=== PATIENT | male | born 1955 | race Caucasian/White ===

== ENCOUNTER 2016-09-04 19:04 | Emergency (ER) | payer MEDICARE, OTHER ==
[2016-09-04 19:04] VITALS: BMI 21.5
[2016-09-04 19:11] VITALS: BP 148/71; PULSE 65; RESP 20; TEMP 97.8; O2SAT 97
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
== END 2016-09-04 21:40 | disposition left against medical advice (07) ==
LOC: H.ER 19:04
DX: S59.912A Unspecified injury of left forearm, initial encounter (principal); W19.XXXA Unspecified fall, initial encounter; Y92.89 Other specified places as the place of occurrence of the external cause; M54.9 Dorsalgia, unspecified

== ENCOUNTER 2017-08-07 10:51 | Emergency (ER) | payer MEDICARE, OTHER ==
[2017-08-07 10:57] VITALS: TEMP 97.8; BMI 27.1
[2017-08-07] MEDS ORDERED: Alum-Mag Hydrox-Simethicone Susp (30 mL) PO ONE (12:23)
[2017-08-07] MEDS ORDERED: Iohexol 240 (50 ml) PO ONE (12:24)
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
[2017-08-07] MEDS ORDERED: Alum-Mag Hydrox-Simethicone Susp (30 mL) ONE (13:08)
[2017-08-07] MEDS ORDERED: Iohexol 240 (50 ml) ONE (13:08)
[2017-08-07 13:25] LABS: BASO % 0.6 % (0.0-2.0); EOS % 0.5 % (0.0-4.0); HEMOGLOBIN 13.2 g/dL (12.0-18.0); LYMPH # 2.1 K/uL (1.0-4.3); LYMPH % 25.3 % (20.0-40.0); MEAN CELL VOLUME 96.2 fl (80.0-94.0); MEAN CORPUSCULAR HEMOGLOBIN 31.4 pg (27.0-31.0); MEAN CORPUSCULAR HGB CONC 32.6 g/dL (33.0-37.0); MEAN PLATELET VOLUME 8.2 fl (7.2-11.7); MONO # 0.7 K/uL (0.0-0.8); MONO % 8.9 % (0.0-10.0); NEUT # 5.2 K/uL (1.8-7.0); NEUT % 64.7 % (50.0-75.0); NRBC % 0.1 % (0.0-0.0); RBC 4.2 Mil/uL (4.40-5.90); WHITE BLOOD COUNT 8.1 K/uL (4.8-10.8)
--- NOTE | 2017-08-07 14:29 | RAD ---
HISTORY: epigastric abdominal pain COMPARISON: 10/04/2015 FINDINGS: LUNGS: No active pulmonary disease. PLEURA: No significant pleural effusion identified, no pneumothorax apparent. CARDIOVASCULAR: No radiographic findings to suggest acute or significant cardiovascular disease. OSSEOUS STRUCTURES: No significant abnormalities. VISUALIZED UPPER ABDOMEN: Normal. OTHER FINDINGS: None. IMPRESSION: No active disease. No significant interval change compared to the prior examination(s).
[2017-08-07 14:40] LABS: ALB/GLOB RATIO 1.2 (1.0-2.1)
[2017-08-07 14:41] LABS: URINE BILIRUBIN NEGATIVE (NEGATIVE); URINE CLARITY Clear (Clear); URINE COLOR STRAW (YELLOW); URINE GLUCOSE (UA) NEGATIVE (Normal)
[2017-08-07 14:42] LABS: SQUAMOUS EPITHIAL 1 /hpf (0-5); URINE BACTERIA FEW (<OCC); URINE BLOOD TRACE (NEGATIVE); URINE LEUKOCYTE ESTERASE NEGATIVE Leu/uL (Negative); URINE PROTEIN 30 mg/dL (NEGATIVE); URINE UROBILINOGEN 1.01 mg/dL (0.2-1.0)
[2017-08-07 14:53] LABS: ALBUMIN 3.9 g/dL (3.5-5.0); ALT/SGPT 52 U/L (21-72); AST/SGOT 35 U/L (17-59); BLOOD UREA NITROGEN 16 mg/dl (9-20); CALCIUM 9.8 mg/dL (8.4-10.2); GFR AFRICAN-AMERICAN > 60; GFR NON-AFRICAN AMERICAN > 60; LIPASE 34 U/L (23-300)
--- NOTE | 2017-08-07 15:07 | CARD ---
APPROVED REPORT EKG Measurement Heart [id number] OR 128P72 [id number] <Conclusion> Normal sinus rhythm Possible Left atrial enlargement Borderline ECG
[2017-08-07] MEDS ORDERED: Sodium Chloride 0.9% 100 ML ONE (16:19)
[2017-08-07] MEDS ORDERED: Iohexol 300 100 ML IJ ONE (16:19)
[2017-08-07] MEDS ORDERED: Sodium Chloride 0.9% 1,000 ML IV STA (16:45)
--- NOTE | 2017-08-07 17:29 | CT ---
PROCEDURE: CT Abdomen and Pelvis with contrast HISTORY: epigastric pain with diffuse tenderness COMPARISON: None. TECHNIQUE: Contrast dose: 95 cc Omnipaque 300 Radiation dose: Total exam DLP = 322.17 mGy-cm. This CT exam was performed using one or more of the following dose reduction techniques: Automated exposure control, adjustment of the mA and/or kV according to patient size, and/or use of iterative reconstruction technique. FINDINGS: LOWER THORAX: Unremarkable. LIVER: Hepatic steatosis. No focal masses. No intrahepatic bile duct dilatation or perihepatic ascites. GALLBLADDER AND BILE DUCTS: Unremarkable. PANCREAS: Unremarkable. No gross lesion or ductal dilatation. SPLEEN: Unremarkable. ADRENALS: Mildly enlarged adrenal glands bilaterally with nodular contours likely benign etiology, incidental. KIDNEYS AND URETERS: Unremarkable. No hydronephrosis. No solid mass. VASCULATURE: Unremarkable. No aortic aneurysm. BOWEL: Constipation without fecal impaction or obstruction. APPENDIX: Normal appendix. PERITONEUM: Unremarkable. No free fluid. No free air. LYMPH NODES: Unremarkable. No enlarged lymph nodes. BLADDER: Unremarkable. REPRODUCTIVE: Unremarkable. BONES: No acute fracture. Degenerative disc disease at multiple levels. Disc space narrowing, vacuum disc phenomenon and annular bulges identified L4-5. OTHER FINDINGS: None. IMPRESSION: No acute findings related to/accounting for the clinical presentation. Additional benign and/or incidental findings described above.
[2017-08-07 18:05] VITALS: BP 110/62; RESP 18
[2017-08-07 20:03] VITALS: O2SAT 100
[2017-08-07 20:06] VITALS: PULSE 60
== END 2017-08-07 18:05 | disposition home or self-care (01) ==
LOC: SUPCPDRO 10:51 → H.ER 10:51
DX: K29.70 Gastritis, unspecified, without bleeding (principal); E78.00 Pure hypercholesterolemia, unspecified; G89.29 Other chronic pain; I10 Essential (primary) hypertension
CPT/HCPCS: 71045; 74177; 80053; 81003; 83690; 84484; 85025; 93005; 96361; 96374; 99283; G0480; J7040; Q9966; Q9967

== ENCOUNTER 2017-10-13 16:24 | Emergency (ER) | payer MEDICARE, OTHER ==
[2017-10-13 16:24] VITALS: BMI 27.1
[2017-10-13] MEDS ORDERED: Naloxone 0.4 mg/ml Inj (Adult) IVP STA (16:44)
[2017-10-13] MEDS ORDERED: Sodium Chloride 0.9% 1,000 ML IV STA ×3 (16:44→22:35)
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
[2017-10-13] MEDS ORDERED: Naloxone 0.4 mg/ml Inj (Adult) ONE (17:09)
[2017-10-13 17:23] LABS: BASO # 0.1 K/uL (0.0-0.2); EOS # 0.2 K/uL (0.0-0.7); EOS % 2.2 % (0.0-4.0); HEMOGLOBIN 10.9 g/dL (12.0-18.0); LYMPH % 38.2 % (20.0-40.0); MEAN CELL VOLUME 93.2 fl (80.0-94.0); MEAN CORPUSCULAR HEMOGLOBIN 30.4 pg (27.0-31.0); MEAN CORPUSCULAR HGB CONC 32.6 g/dL (33.0-37.0); MEAN PLATELET VOLUME 8.9 fl (7.2-11.7); MONO % 12.2 % (0.0-10.0); NEUT # 3.7 K/uL (1.8-7.0); NEUT % 46.4 % (50.0-75.0); RBC 3.58 Mil/uL (4.40-5.90); RED CELL DISTRIBUTION WIDTH 14.7 % (11.5-14.5); WHITE BLOOD COUNT 7.9 K/uL (4.8-10.8)
--- NOTE | 2017-10-13 17:28 | RAD ---
HISTORY: clearance COMPARISON: 08/07/2017 FINDINGS: LUNGS: No active pulmonary disease. PLEURA: No significant pleural effusion identified, no pneumothorax apparent. CARDIOVASCULAR: No radiographic findings to suggest acute or significant cardiovascular disease. OSSEOUS STRUCTURES: No significant abnormalities. VISUALIZED UPPER ABDOMEN: Normal. OTHER FINDINGS: None. IMPRESSION: No active disease. No significant interval change compared to the prior examination(s).
[2017-10-13 17:30] LABS: ALB/GLOB RATIO 1.2 (1.0-2.1); ALT/SGPT 30 U/L (21-72); AST/SGOT 33 U/L (17-59); BLOOD UREA NITROGEN 21 mg/dl (9-20); CALCIUM 8.6 mg/dL (8.4-10.2); GFR AFRICAN-AMERICAN 41; GFR NON-AFRICAN AMERICAN 34
[2017-10-13 19:29] VITALS: O2SAT 96
--- NOTE | 2017-10-13 23:15 | ED PDOC ---
- Laboratory Results Result Diagrams: 10/13/17 17:17 10/13/17 17:17 - ECG O2 Sat by Pulse Oximetry: 96 - Progress ED Course And Treament: Case endorsed to continuity writer from Carmella MIRANDA pending re-eval 21:30 Patient sleeping; arousable to verbal stimuli 23:45 Patient awake, alert, oriented x3. Ambulating steady gait. VSS Stable for discharge Patient educated on lab findings, advised follow up PMD 2-3 days. Disposition - Clinical Impression Clinical Impression: Substance abuse, Elevated serum creatinine - POA Present On Arrival: None - Disposition Disposition: Routine/Home Disposition Time: 23:54 Condition: IMPROVED Instructions: Drug Abuse and Drug Addiction (DC), Creatinine Level Test Forms: [employer] (Bengali)
[2017-10-13 23:58] VITALS: BP 106/59; PULSE 58; RESP 15; TEMP 98.2
--- NOTE | 2017-10-14 08:45 | CARD ---
APPROVED REPORT EKG Measurement Heart [id number] [id number] <Conclusion> Sinus bradycardia with premature atrial complexes Otherwise normal ECG
== END 2017-10-14 00:07 | disposition home or self-care (01) ==
LOC: H.ER 16:24
DX: F12.90 Cannabis use, unspecified, uncomplicated (principal); R79.89 Other specified abnormal findings of blood chemistry; E78.00 Pure hypercholesterolemia, unspecified; F17.210 Nicotine dependence, cigarettes, uncomplicated; G89.29 Other chronic pain; I10 Essential (primary) hypertension
CPT/HCPCS: 71045; 80053; 82948; 84484; 85025; 93005; 96374; 99285; G0480; J2310; J7030

== ENCOUNTER 2017-12-03 17:35 | Emergency (ER) | payer MEDICARE, OTHER ==
[2017-12-03 17:35] VITALS: BMI 27.1
[2017-12-03 17:59] VITALS: BP 156/93; PULSE 77; RESP 18; TEMP 98.7; O2SAT 99
[2017-12-03] MEDS ORDERED: Sodium Chloride 0.9% 1,000 ML IV STA (18:57)
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
[2017-12-03 20:12] LABS: BASO # 0.1 K/uL (0.0-0.2); EOS # 0.1 K/uL (0.0-0.7); EOS % 0.9 % (0.0-4.0); HEMOGLOBIN 12.6 g/dL (12.0-18.0); LYMPH # 2.7 K/uL (1.0-4.3); LYMPH % 31.8 % (20.0-40.0); MEAN CELL VOLUME 89.2 fl (80.0-94.0); MEAN CORPUSCULAR HGB CONC 33.6 g/dL (33.0-37.0); MEAN PLATELET VOLUME 7.7 fl (7.2-11.7); MONO # 0.8 K/uL (0.0-0.8); MONO % 9.5 % (0.0-10.0); NEUT # 4.8 K/uL (1.8-7.0); NEUT % 56.8 % (50.0-75.0); RBC 4.19 Mil/uL (4.40-5.90); WHITE BLOOD COUNT 8.5 K/uL (4.8-10.8)
[2017-12-03] MEDS ORDERED: Iohexol 300 100 ML IJ ONE (20:28)
[2017-12-03] MEDS ORDERED: Sodium Chloride 0.9% 0 ML IV ONE (20:28)
[2017-12-03 20:44] LABS: ALBUMIN 4.4 g/dL (3.5-5.0); ALT/SGPT 87 U/L (21-72); AST/SGOT 60 U/L (17-59); BLOOD UREA NITROGEN 12 mg/dl (9-20); CALCIUM 9.6 mg/dL (8.4-10.2); GFR AFRICAN-AMERICAN > 60; GFR NON-AFRICAN AMERICAN > 60; LIPASE 75 U/L (23-300)
[2017-12-03 20:45] LABS: ALB/GLOB RATIO 1.3 (1.0-2.1)
[2017-12-03 20:48] LABS: INR 1.1; PARTIAL THROMBOPLASTIN TIME 35.4 Seconds (25.6-37.1); PROTHROMBIN TIME 11.9 Seconds (9.8-13.1)
[2017-12-03 20:56] LABS: SQUAMOUS EPITHIAL < 1 /hpf (0-5); URINE BACTERIA OCC (<OCC); URINE BILIRUBIN NEGATIVE (NEGATIVE); URINE BLOOD SMALL (NEGATIVE); URINE CLARITY CLOUDY (Clear); URINE COLOR YELLOW (YELLOW); URINE GLUCOSE (UA) NEG (Normal); URINE LEUKOCYTE ESTERASE NEG Leu/uL (Negative); URINE PROTEIN NEGATIVE (NEGATIVE)
--- NOTE | 2017-12-04 07:38 | CARD ---
APPROVED REPORT Date of service: 12/03/2017 <Conclusion> Normal sinus rhythm Possible Left atrial enlargement Left axis deviation Abnormal ECG
--- NOTE | 2017-12-04 10:53 | CT ---
Date of service: 12/03/2017 PROCEDURE: CT Abdomen and Pelvis without intravenous contrast HISTORY: Generalized abdominal pain and vomiting. COMPARISON: 08/07/2017. TECHNIQUE: Unenhanced study. Neither oral nor intravenous contrast administered. Sensitivity and specificity for acute inflammatory processes limited by the absence of oral and intravenous contrast. Radiation dose: Total exam DLP = 336.14 mGy-cm. This CT exam was performed using one or more of the following dose reduction techniques: Automated exposure control, adjustment of the mA and/or kV according to patient size, and/or use of iterative reconstruction technique. FINDINGS: LOWER THORAX: Unremarkable. LIVER: Unremarkable. No gross lesion or ductal dilatation. GALLBLADDER AND BILE DUCTS: Unremarkable. PANCREAS: Unremarkable. No gross lesion or ductal dilatation. SPLEEN: Unremarkable. ADRENALS: Mildly enlarged adrenal glands bilaterally consistent with adrenal adenomas. These are unchanged. KIDNEYS AND URETERS: Unremarkable. No hydronephrosis. No solid mass. VASCULATURE: Unremarkable. No aortic aneurysm. BOWEL: Dilated proximal small bowel and jejunum. Early/incomplete small bowel obstruction should be considered. Proximal small bowel is of normal luminal caliber on the prior study. APPENDIX: Unremarkable. Normal appendix. PERITONEUM: Unremarkable. No free fluid. No free air. LYMPH NODES: Unremarkable. No enlarged lymph nodes. BLADDER: Unremarkable. REPRODUCTIVE: Unremarkable. BONES: No acute fracture. OTHER FINDINGS: None. IMPRESSION: Dilated proximal small bowel and jejunum a new finding compared to the prior study. Early/incomplete small bowel obstruction should be considered. Additional benign and/or incidental findings described above. Concordant results (preliminary interpretation) provided by [employer]. Procedure Completed: 21:29. Preliminary ([facility]) Report: Dictated and Authenticated: 21:54. Final Interpretation: 10:52. December 04, 2017.
== END 2017-12-03 22:25 | disposition left against medical advice (07) ==
LOC: H.ER 17:35
DX: R10.9 Unspecified abdominal pain (principal); I10 Essential (primary) hypertension; E78.00 Pure hypercholesterolemia, unspecified; G89.29 Other chronic pain; Z91.19 Patient's noncompliance with other medical treatment and regimen; F17.210 Nicotine dependence, cigarettes, uncomplicated
CPT/HCPCS: 74176; 80053; 81003; 83690; 85025; 85610; 85730; 93005; 96374; 99283; J2405; J7030

== ENCOUNTER 2018-03-30 09:19 | Emergency (ER) | payer MEDICARE, OTHER ==
[2018-03-30 09:19] VITALS: BMI 27.1
[2018-03-30 10:59] LABS: BASO # 0.1 K/uL (0.0-0.2); BASO % 0.8 % (0.0-2.0); EOS # 0.1 K/uL (0.0-0.7); EOS % 1.1 % (0.0-4.0); HEMOGLOBIN 11.6 g/dL (12.0-18.0); LYMPH # 2.9 K/uL (1.0-4.3); LYMPH % 29.7 % (20.0-40.0); MEAN CELL VOLUME 91.4 fl (80.0-94.0); MEAN CORPUSCULAR HEMOGLOBIN 29.8 pg (27.0-31.0); MEAN CORPUSCULAR HGB CONC 32.6 g/dL (33.0-37.0); MEAN PLATELET VOLUME 8.5 fl (7.2-11.7); MONO # 0.9 K/uL (0.0-0.8); MONO % 9.9 % (0.0-10.0); NEUT # 5.6 K/uL (1.8-7.0); NEUT % 58.5 % (50.0-75.0); RBC 3.89 Mil/uL (4.40-5.90); RED CELL DISTRIBUTION WIDTH 14.7 % (11.5-14.5); WHITE BLOOD COUNT 9.6 K/uL (4.8-10.8)
[2018-03-30 11:10] LABS: ACETAMINOPHEN < 10.0 ug/ml (10.0-30.0); ALB/GLOB RATIO 1.2 (1.0-2.1); ALBUMIN 4.1 g/dL (3.5-5.0); ALT/SGPT 22 U/L (21-72); AST/SGOT 40 U/L (17-59); BLOOD UREA NITROGEN 19 mg/dl (9-20); CALCIUM 9.5 mg/dL (8.4-10.2); GFR NON-AFRICAN AMERICAN > 60; SALICYLATE < 1.0 mg/dl
--- NOTE | 2018-03-30 12:12 | CT ---
Date of service: 03/30/2018 PROCEDURE: CT HEAD WITHOUT CONTRAST. HISTORY: ams COMPARISON: None available TECHNIQUE: Axial computed tomography images were obtained through the head/brain without intravenous contrast. Radiation dose: Total exam DLP = 1381.25 mGy-cm. This CT exam was performed using one or more of the following dose reduction techniques: Automated exposure control, adjustment of the mA and/or kV according to patient size, and/or use of iterative reconstruction technique. FINDINGS: HEMORRHAGE: No intracranial hemorrhage. BRAIN: No mass effect or edema. Moderate to severe patchy and confluent white matter lucency in the periventricular deep and subcortical white matter consistent with microvascular white matter ischemic change. This is slightly greater than expected for patient age. Please correlate clinically and rule out demyelinating disorder. VENTRICLES: Unremarkable. No hydrocephalus. CALVARIUM: Unremarkable. PARANASAL SINUSES: Unremarkable as visualized. No significant inflammatory changes. MASTOID AIR CELLS: Unremarkable as visualized. No inflammatory changes. OTHER FINDINGS: None. IMPRESSION: Moderate to severe chronic white matter ischemic change. Rule out demyelinating disorder. No other significant abnormality.
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
[2018-03-30 12:49] LABS: BARBITURATES, UR NEGATIVE (NEGATIVE); BENZODIAZEPINES, UR NEGATIVE (NEGATIVE); OPIATES, UR POSITIVE (NEGATIVE); PHENCYCLIDINE, UR NEGATIVE (NEGATIVE)
--- NOTE | 2018-03-30 14:26 | RAD ---
Date of service: 03/30/2018 PROCEDURE: Right Knee Radiographs. HISTORY: knee pain COMPARISON: None. FINDINGS: BONES: Normal. No fracture. JOINTS: Severe degenerative changes are seen in the medial compartment with joint space narrowing and bony sclerosis. Mild degenerative changes are seen in the patellofemoral joint JOINT EFFUSION: None. OTHER FINDINGS: None. IMPRESSION: No acute findings
[2018-03-30 17:43] VITALS: BP 139/73; PULSE 82; RESP 20; TEMP 97.6
[2018-04-02 10:22] VITALS: O2SAT 100
== END 2018-03-30 18:15 | disposition home or self-care (01) ==
LOC: H.ER 09:19 → SUPCPDRO 09:19 → H.ER 18:15
DX: F11.10 Opioid abuse, uncomplicated (principal)
CPT/HCPCS: 70450; 73562; 80053; 82948; 85025; 99285; G0480

== ENCOUNTER 2018-04-11 21:16 | Emergency (ER) | payer MEDICARE, OTHER ==
[2018-04-11 21:16] VITALS: BMI 27.1
[2018-04-11 21:35] VITALS: BP 141/80; PULSE 87; RESP 16; TEMP 98.1; O2SAT 97
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
--- NOTE | 2018-04-12 09:46 | RAD ---
Date of service: 04/11/2018 PROCEDURE: Radiographs of the Right Shoulder HISTORY: s/p fall, joint pain COMPARISON: No prior. FINDINGS: BONES: No acute fracture or destructive bony lesion identified. Fibrocystic changes seen at the right humeral head. JOINTS: Degenerative glenohumeral and acromioclavicular joint changes are identified manifest by cortical sclerosis and osteophyte development. SOFT TISSUES: Normal. OTHER FINDINGS: None. IMPRESSION: Degenerative joint changes are [id number] severity. No acute fracture, subluxation or dislocation.
--- NOTE | 2018-04-12 09:48 | RAD ---
Date of service: 04/11/2018 PROCEDURE: Right Knee Radiographs. HISTORY: s/p fall, joint pain COMPARISON: None. FINDINGS: BONES: No acute fracture or destructive bony lesion identified. JOINTS: Gross joint space narrowing, cortical sclerosis and osteophyte development are identified at the patellofemoral and medial femorotibial compartments with similar but lesser degenerative changes present at the lateral femorotibial compartment. JOINT EFFUSION: None. OTHER FINDINGS: None. IMPRESSION: Late stage osteoarthritis. No acute fracture, subluxation or dislocation identified.
== END 2018-04-11 23:14 | disposition home or self-care (01) ==
LOC: H.ER 21:16
DX: M25.511 Pain in right shoulder (principal); M25.561 Pain in right knee; M17.10 Unilateral primary osteoarthritis, unspecified knee; T14.8XXA Other injury of unspecified body region, initial encounter; W18.2XXA Fall in (into) shower or empty bathtub, initial encounter; F17.200 Nicotine dependence, unspecified, uncomplicated; G89.29 Other chronic pain; I10 Essential (primary) hypertension
CPT/HCPCS: 73030; 73562; 96372; 99284; J1885

== ENCOUNTER 2018-04-12 05:01 | Emergency (ER) | payer MEDICARE, OTHER ==
[2018-04-12 06:00] VITALS: BMI 25.8
[2018-04-12 06:03] VITALS: PULSE 68; TEMP 98.2
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
[2018-04-12 07:03] VITALS: RESP 24; O2SAT 96
[2018-04-12 07:06] VITALS: BP 162/89
== END 2018-04-12 07:03 | disposition home or self-care (01) ==
LOC: H.ER 05:01
DX: Z00.00 Encounter for general adult medical examination without abnormal findings (principal)

== ENCOUNTER 2018-04-26 12:34 | Emergency (ER) | payer MEDICARE, OTHER ==
[2018-04-26 12:34] VITALS: BMI 25.8
[2018-04-26 12:47] VITALS: BP 153/79; PULSE 74; RESP 18; TEMP 97; O2SAT 99
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
== END 2018-04-26 13:55 | disposition home or self-care (01) ==
LOC: H.ER 12:34
DX: M17.11 Unilateral primary osteoarthritis, right knee (principal); E78.00 Pure hypercholesterolemia, unspecified; I10 Essential (primary) hypertension
CPT/HCPCS: 96372; 99283; J1885

== ENCOUNTER 2018-05-02 13:53 | Emergency (ER) | payer MEDICARE, OTHER ==
[2018-05-02 13:54] VITALS: BMI 25.8
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
[2018-05-02 15:23] VITALS: BP 120/70; PULSE 78; RESP 20; TEMP 98.3
[2018-05-02 18:41] VITALS: O2SAT 99
== END 2018-05-02 15:20 | disposition home or self-care (01) ==
LOC: H.ER 13:53
DX: R11.2 Nausea with vomiting, unspecified (principal); M79.604 Pain in right leg
CPT/HCPCS: 96372; 99283; J1885

== ENCOUNTER 2018-08-04 20:48 | Emergency (ER) | payer MEDICARE, OTHER ==
[2018-08-04 20:48] VITALS: BMI 25.8
[2018-08-04 21:05] VITALS: BP 138/77; PULSE 76; RESP 18; TEMP 98.7; O2SAT 99
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
== END 2018-08-04 22:40 | disposition home or self-care (01) ==
LOC: H.ER 20:48
DX: M25.569 Pain in unspecified knee (principal); G89.29 Other chronic pain; I10 Essential (primary) hypertension
CPT/HCPCS: 96372; 99283; J1885

== ENCOUNTER 2018-08-29 22:47 | Emergency (ER) | payer MEDICARE, OTHER ==
[2018-08-29 22:47] VITALS: BMI 25.8
[2018-08-29 23:33] VITALS: RESP 16; O2SAT 100
[2018-08-30 01:00] LABS: BASO % 0.4 % (0.0-2.0); EOS # 0.1 K/uL (0.0-0.7); EOS % 0.5 % (0.0-4.0); HEMOGLOBIN 12.1 g/dL (12.0-18.0); LYMPH # 1.6 K/uL (1.0-4.3); LYMPH % 16.2 % (20.0-40.0); MEAN CELL VOLUME 90.4 fl (80.0-94.0); MEAN CORPUSCULAR HEMOGLOBIN 29.9 pg (27.0-31.0); MONO # 0.9 K/uL (0.0-0.8); MONO % 9.2 % (0.0-10.0); NEUT # 7.3 K/uL (1.8-7.0); NEUT % 73.7 % (50.0-75.0); NRBC % 0.1 % (0.0-0.0); RBC 4.05 Mil/uL (4.40-5.90); RED CELL DISTRIBUTION WIDTH 14.8 % (11.5-14.5); WHITE BLOOD COUNT 9.9 K/uL (4.8-10.8)
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
[2018-08-30 01:15] LABS: ALB/GLOB RATIO 1.5 (1.0-2.1)
[2018-08-30 01:16] LABS: ALBUMIN 4.8 g/dL (3.5-5.0); ALT/SGPT 25 U/L (21-72); AST/SGOT 31 U/L (17-59); BLOOD UREA NITROGEN 29 mg/dl (9-20); CALCIUM 9.4 mg/dL (8.4-10.2); GFR NON-AFRICAN AMERICAN > 60
[2018-08-30 04:10] VITALS: BP 123/73; PULSE 63; TEMP 97.8
--- NOTE | 2018-08-30 11:56 | CT ---
Date of service: 08/30/2018 PROCEDURE: CT HEAD WITHOUT CONTRAST. HISTORY: headache COMPARISON: Comparison made with CT scan brain 03/30/2018. TECHNIQUE: Axial computed tomography images were obtained through the head/brain without intravenous contrast. Radiation dose: Total exam DLP = 0.0 mGy-cm. This CT exam was performed using one or more of the following dose reduction techniques: Automated exposure control, adjustment of the mA and/or kV according to patient size, and/or use of iterative reconstruction technique. FINDINGS: HEMORRHAGE: No intracranial hemorrhage. BRAIN: Significant diffuse and confluent chronic white matter ischemic changes seen extending peripherally into the deep white matter both cerebral hemispheres. there also appears to be extension of these changes into the white matter tracts of both basal nuclei. Moderate central volume loss. VENTRICLES: No obstructive hydrocephalus. CALVARIUM: Calvarium intact PARANASAL SINUSES: Unremarkable as visualized. No significant inflammatory changes. MASTOID AIR CELLS: Unremarkable as visualized. No inflammatory changes. OTHER FINDINGS: None. IMPRESSION: No acute intracranial hemorrhage. Significant chronic white matter ischemic changes which extend into the white matter tracts of both basal nuclei. Moderate generalized volume loss.
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
== END 2018-08-30 03:35 | disposition home or self-care (01) ==
LOC: H.ER 22:47
DX: S09.90XA Unspecified injury of head, initial encounter (principal); F17.210 Nicotine dependence, cigarettes, uncomplicated; G89.29 Other chronic pain; I10 Essential (primary) hypertension; E78.00 Pure hypercholesterolemia, unspecified; Y04.0XXA Assault by unarmed brawl or fight, initial encounter
CPT/HCPCS: 70450; 70486; 72125; 80053; 85025; 96374; 99282; G0480; J1885; J2765